=== PATIENT | female | born 1990 | race Caucasian/White ===

== ENCOUNTER 2024-08-09 09:02 | Outpatient (CLI) | payer OTHER, SELFPAY ==
--- NOTE | 2024-08-09 09:15 | CRLHL7_ITS ---
For Patients: As a result of the Century Cures Act, medical imaging exams and procedure reports are released immediately into your electronic medical record. You may view this report before your referring provider. If you have questions, please contact your health care provider. INDICATION: First trimester scan, establish dates. COMPARISON: None. TECHNIQUE: Real-time dempsey-scale imaging of the pelvis was performed. FINDINGS: Sonographic imaging demonstrates a single living intrauterine gestation. The embryo demonstrates a regular cardiac rate measuring 176 beats per minute. The embryo`s crown-rump length measurement of 2.3 cm corresponds to a gestational age of 9 weeks 0 days with a sonographic due date of 03/14/2025. There is a normal-appearing yolk sac. There are no gross abnormalities noted within the embryo at this early state of development. The gestational sac has a normal appearance. There is a 13 x 13 x 9 millimeters perigestational hemorrhage. The amount of fluid within the sac appears appropriate for gestational age. The cervix is closed. The myometrium appears normal. Simple right ovarian cyst is present measuring 4.6 x 3.5 x 2.8 cm. Mostly solid left ovarian lesion is present without internal vascularity measuring 4.4 x 3.9 x 3.6 cm there are no suspicious fluid collections noted in the cul-de-sac. IMPRESSION: Single living intrauterine measuring 9 weeks 0 days and sonographic due date 03/14/2025. Subchorionic hemorrhage measures 13 x 13 x 9 millimeters. Simple circumscribed anechoic right ovarian cyst measures 4.6 cm. Mostly solid nonvascular left ovarian lesion measuring 4.4 cm. Dictated by Juan Francisco Briseno MD @ 08/09/2024 12:13:49 PM (Electronically Signed)
== END 2024-08-09 09:03 | disposition home or self-care (01) ==
LOC: US 09:02
PROVIDERS: Visit Provider Physician Assistant
DX: Z34.91 Encounter for supervision of normal pregnancy, unspecified, first trimester (principal); O20.9 Hemorrhage in early pregnancy, unspecified; O34.81 Maternal care for other abnormalities of pelvic organs, first trimester; N83.201 Unspecified ovarian cyst, right side; N83.202 Unspecified ovarian cyst, left side; Z3A.09 9 weeks gestation of pregnancy
CPT/HCPCS: 76817; 93976

== ENCOUNTER 2024-08-23 10:16 | Outpatient (CLI) | payer OTHER, SELFPAY | END 2024-08-23 10:17 | disposition home or self-care (01) | LOC: NFLDREF 08-30 15:49 | PROVIDERS: Visit Provider Advanced Practice Midwife | DX: Z34.81 Encounter for supervision of other normal pregnancy, first trimester (principal); Z81.0 Family history of intellectual disabilities; Z67.40 Type O blood, Rh positive | CPT/HCPCS: 83020; 83021; 85660; 86592; 86703; 86704; 86706; 86762; 86787; 86803; 86850; 86900; 86901; 87086; 87340 ==

== ENCOUNTER 2024-10-27 09:34 | Outpatient (CLI) | payer OTHER, SELFPAY | END 2024-10-27 09:35 | disposition home or self-care (01) | LOC: US 09:35 | PROVIDERS: Visit Provider Advanced Practice Midwife | DX: O09.522 Supervision of elderly multigravida, second trimester (principal); Z3A.20 20 weeks gestation of pregnancy | CPT/HCPCS: 76811 ==

== ENCOUNTER 2024-12-01 10:39 | Outpatient (CLI) | payer OTHER, SELFPAY | END 2024-12-01 10:40 | disposition home or self-care (01) | LOC: US 10:39 | PROVIDERS: Visit Provider Advanced Practice Midwife | DX: O09.522 Supervision of elderly multigravida, second trimester (principal); Z3A.25 25 weeks gestation of pregnancy | CPT/HCPCS: 76816 ==

== ENCOUNTER 2024-12-22 09:11 | Outpatient (CLI) | payer OTHER, SELFPAY | END 2024-12-22 09:12 | disposition home or self-care (01) | LOC: NFLDREF 12-29 00:21 | PROVIDERS: Visit Provider Midwife | DX: Z34.83 Encounter for supervision of other normal pregnancy, third trimester (principal) | CPT/HCPCS: 86592 ==

== ENCOUNTER 2025-02-16 09:59 | Outpatient (CLI) | payer OTHER, SELFPAY | END 2025-02-16 10:00 | disposition home or self-care (01) | LOC: NFLDREF 02-19 16:41 | PROVIDERS: Visit Provider Midwife | DX: Z34.93 Encounter for supervision of normal pregnancy, unspecified, third trimester (principal); Z3A.36 36 weeks gestation of pregnancy | CPT/HCPCS: 87081; 87653 ==

== ENCOUNTER 2025-03-07 07:36 | Inpatient (IN) | payer OTHER, SELFPAY ==
[2025-03-07] VITALS (53 sets, daily range): BP systolic 92–127; BP diastolic 52–88; PULSE 67–102; RESP 14–18; TEMP 36.3–36.9; O2SAT 97–100; BMI 29.5
[2025-03-07 08:40] LABS: Hematocrit* 37.1 % (33.0-51.0); Hemoglobin* 12.7 gm/dL (12.0-16.0); Immature Granulocytes Abs Auto 0.05 K/uL (0.00-0.30); Immature Granulocytes Pct Auto 0.5 %; Mean Corpuscular HGB Conc 34 gm/dL (32-36); Mean Corpuscular Hemoglobin 31 pg (26-34); Mean Corpuscular Volume 92 fL (80-100); RDW Coefficient of Variation % 12.8 % (11.5-15.5); Red Blood Count* 4.04 m/uL (4.00-5.20); White Blood Count* 10.21 K/uL (4.50-11.00)
[2025-03-07 08:41] LABS: Lymphocytes Absolute Auto 1.40 K/uL (0.90-2.90); Slide Review Reflex No
[2025-03-07] MEDS: OXYTOCIN 30 unit/500 ML in NS 30 UNIT/500 ML BAG IVPB (11:03)
[2025-03-07] MEDS: LACTATED RINGERS 1000 ML 1,000 ML 125 ML IV (11:03)
--- NOTE | 2025-03-07 12:32 | P.LDBA_ITS ---
Subjective History of Present Illness Date Seen: 03/07/25 Narrative: Patient is being admitted to Labor and Delivery for IOL at 39w0d for AMA. She is a 34 year old . Some cramping, but nothing regular. Denies LOF, VB anc reports +FM. Specific Issues/Plans : Jose R Elective IOL at 39 weeks on 03/07/2025; consent signed 01/19 w/ B.ЕКАТЕРИНА Simmons H&P done by Petra Montes CNM on 02/23/25 #AMA? Recommend Genetic Screening Test: ordered 08/09, low risk 20-week Level II detailed ultrasound with [facility] # Hx of genital herpes Recommended suppression with Valtrex starting at 36 weeks-prescription sent at 34 weeks # Hx of macrosomia 1st child: 10lb 5oz # Left ovarian cyst, known dermoid 4.4 x3.9 x3.6 cm, pt reports unchanged from previous, confirmed with records; She is aware of what to monitor for if symptomatic originally identified in 1st and offered surgical intervention but declines Follow-up in post- period recommended by [facility] Imaging:? 1st trimester:08/09/24 Single living intrauterine measuring 9 weeks 0 days and sonographic due date 03/14/2025. Subchorionic hemorrhage measures 13 x 13 x 9 millimeters. Simple circumscribed anechoic right ovarian cyst measures 4.6 cm. Mostly solid nonvascular left ovarian lesion measuring 4.4 cm.? Level II Anatomy Scan with [facility] (10/27/2024): Impression: 1. Nelson at 20w2d gestational age by 9 week US. 2. No anomalies commonly detected by ultrasound were identified in the detailed anatomic survey within the limits of ultrasound, however some views of the arches and bicaval imaging were suboptimal due to position, as described above. 3. Growth parameters and estimated weight were consistent with gestational age predicted by assigned ADINA. 4. The amniotic fluid volume appeared normal. 5. On transabdominal imaging the cervix appeared long and closed. Follow-up with [facility] (12/01/2024): Impression: 1. Nelson intrauterine at 25w 2d gestational age. 2. None of the anomalies commonly detected by ultrasound were evident in the anatomic survey described above. 3. Growth parameters and estimated weight were consistent with appropriate for gestational age pattern of growth. 4. The amniotic fluid volume appeared normal. 5. A hyperechoic left adnexal mass is again noted, measuring 50 x 36 x 44 cm, which is stable compared to the prior US. The appearance is consistent with known left dermoid cyst.? ? COVID:?? Flu:N/A Tdap:?Declines 01/05/25 RSV:N/A? 32wk Mental Health:? 34wk hgb:??? Pap: [(Only high-risk abnormal pap in problem list)]? ? OB - Problem Based A/P Additional Plan (1) Supervision of other normal : Status: Acute (2) History of herpes genitalis: Status: Acute (3) AMA (advanced maternal age) multigravida 35+: Status: Acute Plan ASSESSMENT:? 34 y.o. at 39w0d weeks gestation? complicated by:?AMA Labor type: induced? Category 1 FHR pattern.?? Labor complicated by: n/a? GBS neg? ? PLAN:? 1. Routine intrapartum cares as ordered. Continue with expectant management? 2. Monitoring per policy, intermittent as appropriate then continuous when either labor epidural and/or oxytocin. ? 3. Planning labor epidural and desires sooner rather than later. ?? 4. Patient encouraged to reposition and ambulate to promote physiologic labor and .? 5. Anticipate ? Delivery/Labor/Induction Plan Plan: induction Induction method: AROM OB Exam Physical Exam Vital signs: Temp Pulse Resp BP Pulse Ox 98.3 F 83 16 127/83 97 03/07/25 11:47 03/07/25 11:47 03/07/25 11:47 03/07/25 11:47 03/07/25 10:46 Narrative: Vitals Reviewed Constitutional:? Alert and oriented x3 HEENT:? Normocephalic, atraumatic Lungs:? Clear to auscultation bilaterally Heart:? Regular rate and rhythm, no murmur, rub or gallop Abdomen:? Soft, nontender, and gravid. Vertex by Boyd's, confirmed with cervical exam. Extremities:? No edema or erythema Cervix: 3 cm/80%/-2 station/vertex NST: 135 bpm/mod variability/+ accelerations/no decelerations/contractions: mild; irregular
[2025-03-07] MEDS: LACTATED RINGERS 1000 ML 1,000 ML IV (14:46)
[2025-03-07] MEDS: ROPIVACAINE 0.2% 100 ml 100 ML 12 MG EPIDURAL (15:00)
[2025-03-07] MEDS: LIDOCAINE 2% (PF) 5 ML VIAL EPIDURAL (15:01)
[2025-03-07] MEDS: ROPIVACAINE 0.2 % PF 10 ML INJ 20 MG EPIDURAL (15:01)
--- NOTE | 2025-03-07 15:03 | P.ANBPRC_ITS ---
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 [employer] Lives with: Andria Odell Patty Pets: 1 cat, 1 dog Abuse: Denies past/present Special Diet: Denies Ok with a blood transfusion: yes Culture or mu-ism beliefs: denies RISK FACTORS Exercise Times/wk: Walking, 3x per week Hx of Depression and/or Anxiety/other mood disorder: no hx Seat Belt Use: Routinely Smoking: Denies past/present Alcohol/day: Denies while ; none prior; Remote hx of alcohol abuse Caffeine: 2 Cups usually, Drug Use: Denies past/present Chicken Pox: Yes as a child MRSA: Denies What is your current living situation?: I presently have a place to live Problems where you live: no known problems In the past 12 months, utilities in danger of being shut off: no In past 12 months, lack of transportation kept you from medical appts, meetings, work, or getting things needed for daily living: no In the past 12 mos, have been you worried that your food would run out before yo u had money to buy more?: never true In the past 12 mos, the food you bought just didn't last and you didn't have money to buy more?: never true Smoking Status: Never smoker How often does anyone, including family, friends and others, physically hurt you : never How often does anyone, including family, friends and others, insult or talk down to you: never How often does anyone, including family, friends and others, threaten you with harm: never How often does anyone, including family, friends and others, scream or curse at you: never Meds Home Medications and Allergies Home Medications ?Medication ?Instructions ?Recorded ?Confirmed ?Type vitamins no.119-iron tab PO 08/09/24 03/02/25 History fumarate 29 mg-folic acid 1 mg tablet valacyclovir 500 mg tablet 500 mg PO BID 6 weeks #90 t abs 02/02/25 03/07/25 Rx Allergies Allergy/AdvReac Type Severity Reaction Status Date / Time No Known Drug Allergies Allergy Verified 03/02/25 10:24 Results Labs Labs: Laboratory Results - last 24 hr 03/07/25 08:34 WBC 10.21 RBC 4.04 Hgb 12.7 Hct 37.1 MCV 92 MCH 31 MCHC 34 RDW Coeff of Sarah 12.8 Plt Count 157 Neut % (Auto) 79.9 H Lymph % (Auto) 13.3 L Floyd % (Auto) 5.3 Eos % (Auto) 0.8 Baso % (Auto) 0.2 Neut # (Auto) 8.20 H Lymph # (Auto) 1.40 Floyd # (Auto) 0.50 Eos # (Auto) 0.08 Baso # (Auto) 0.02 Abs Immat Gran (auto) 0.05 Imm/Tot Granulo (auto) 0.5 Blood Type O Positive Antibody Screen NEGATIVE Vital Signs Vital Signs: Last Vital Signs Temp 98.4 F 03/07/25 13:40 Pulse 86 03/07/25 15:00 Resp 14 03/07/25 13:40 BP 108/63 03/07/25 15:00 Pulse Ox 100 03/07/25 15:01 Weight: 83.053 kg Height: 167.64 cm Anesthesia Procedures Epidural Insertion Patient Location: OB Start Time: : Stop Time: 15:03 Start Date: 03/07/25 Stop Date: 03/07/25 Reason for Block: procedure for pain Patient Position: sitting Performed By: Linus De Jesus Preanesthetic Checklist: IV checked, risks and benefits discussed, surgical consent, monitors and equipment checked, pre-op evaluation, timeout performed and anesthesia consent Prep: chlorhexidine gluconate Monitoring: blood pressure monitoring, continuous pulse oximetry and heart rate Approach: midline Vertebral Space: lumbar (1-5) Epidural Technique: QUIQUE air Needle Type: Tuohy needle Injection Technique: continuous catheter Needle gauge: 17 Needle Length (cm): 10 cm Needle Insertion Depth (cm): 7 Catheter Gauge: 19 Catheter Type: multi-orifice Catheter at skin depth (cm): 13 Test Dose Result: negative and lidocaine 1.5% with epinephrine 1 to 200,000
--- NOTE | 2025-03-07 15:32 | PM.OBPNL ---
Subjective Date Seen: 03/07/25 Narrative: Cynthia is here for IOL for AMA. she just became comfortable s/p labor epidural. desires SVE. is on IV oxytocin at 8 mu/min. continues to leak sm amt of clear fluid. Objective Vital Signs: Last Vital Signs Temp 98.2 F 03/07/25 15:06 Pulse 78 03/07/25 15:28 Resp 18 03/07/25 15:06 BP 106/64 03/07/25 15:28 Pulse Ox 99 03/07/25 15:23 Pelvic Exam Comments: Vitals Reviewed and stable Constitutional:? Alert and oriented x3 Extremities:? +1 pitting edema Cervix: 7.5 cm/80%/-1 station/vertex NST: 135 bpm/mod variability/ + accelerations/ a few early decelerations/contractions: 2-3.5 min apart. Plan Plan: ASSESSMENT:? 34 at 39.0 weeks gestation? complicated by:?AMA Labor type: Induced, Active labor? Category 2 FHR pattern d/t occas early decel. overall very reassuring FHR tracing. .?? Labor complicated by: none GBS negative labor epidural in place ? PLAN:? 1. Routine intrapartum cares as ordered. Continue with oxytocin management? 2. Monitoring per policy, continuous 3. Anticipate ?
[2025-03-07] MEDS: PHENYLEPHRINE 100 MCG/ML SYRINGE IVP (17:05)
--- NOTE | 2025-03-07 19:08 | W.PM.OBVAGDE ---
OB Procedure Vag Delivery Mother Details Mother Details: The patient is a 34 year-old, 3, Para 3 now, admitted on 03/07/25 at 39.0 weeks gestation. she had AROM completed followed by IV oxytocin protocol where she proceeded to complete after labor epidural. Additional Details Amniotic Membrane Status: AROM Amniotic Membrane Rupture Date: 03/07/25 Amniotic Membrane Rupture Time: 08:26 Amniotic Membrane Fluid Description: Clear Analgesia/Anesthesia Type: Epidural Waterbirth: No Pitcoin: Yes Intrapartal Events: Labor Induction Induction Method: per pitocin protocol and AROM Labor Onset: 14:10 Complete: 18:36 Pushin:42 Heart: heart tones during second stage were [] Delivery Details Delivery Date: 03/07/25 Delivery Time: 18:49 Route of delivery: Gender: Male Viability: Alive; Heart Rate Present Position at Delivery: OA Delivery Details: Patient was admitted for IOL-elective, but she is AMA at 34 y.o. and progressed with inudction methods of AROM and oxytocin. AROM noted at 0826 with clear fluid. Patient was complete at 1836 and pushing at 1842. of a viable male at 1849. Vertex delivered OA. Nuchal cord x1 reduced. Body delivered easily and without incident. passed to mothers abdomen with a vigorous cry. Cord was clamped and cut at > 5 minutes. APGARS were 8 at one minute and 9 at five minutes respectively. Mouth was bulb suctioned. Intact placenta with a 3 vessel cord delivered spontaneously at 1857. Fundus firm. no laceration identified. QBL 400 cc. Mother and baby stable; mother plans to breastfeed. weight pending. 1 Minute Interval Total Score: 8 5 Minute Interval Total Score: 9 Additional Details Shoulder Dystocia: No Placental Delivery Description: Spontaneous Procedure Done: Global Blood Loss: 400 Laceration: None Blood Loss Measurement Type: QBL Bakri Used: No Sponge/Need Count Correct: Yes Cord Vessel Description: 3 Vessels, Nuchal Cord, Loose and Reduced Event Summary Status: Mother and infant were stable after delivery. Disposition: floor
[2025-03-07] MEDS: IBUPROFEN 600 MG TABLET PO (20:35)
[2025-03-07] MEDS: ACETAMINOPHEN 500 MG TABLET 1000 MG PO (22:39)
[2025-03-08 02:24] VITALS: BP 118/76; PULSE 87; RESP 17; TEMP 36.4
[2025-03-08] MEDS: IBUPROFEN 600 MG TABLET PO ×3 (02:27→16:26)
[2025-03-08 06:24] VITALS: BP 118/66; PULSE 94; RESP 17; TEMP 36.7; O2SAT 98
[2025-03-08 06:40] LABS: Hemoglobin* 11.7 gm/dL (12.0-16.0)
--- NOTE | 2025-03-08 07:30 | P.DS_ITS ---
DS: Providers Provider Date Seen: 03/08/25 Date of admission: 03/07/25 07:36 Primary care physician: Not a Local Provider Admitting Clinician: Melva Raines CNM Attending Physician on discharge: Dave Montes CNM Date of Discharge: 03/08/25 DS: Diagnosis Discharge Diagnosis (1) care and examination of lactating mother: Status: Acute Exam Narrative: Exam Narrative: VSS, afebrile GENERAL APPEARANCE: ?normal affect, alert, no distress MOOD: ?appropriate HEENT: normocephalic, neck supple, full ROM CHEST: ?Symmetrical chest wall movement. ?Normal respiratory effort. ?Clear to auscultation HEART: ?regular rate and rhythm ABDOMEN: ?soft, non-tender. Uterine fundus is firm, 1below Umbilicus, Midline and is appropriate for the stage of recovery. ?Bowel sounds present. PERINEUM: ?mild edema of the perineum, intact. EXTREMITIES: ?normal and no edema Const: Vital Signs, click to edit/add: Vital Signs - 24 hr 03/07/25 07:49 03/07/25 09:32 03/07/25 09:32 Temperature 98.2 F Pulse Rate 93 98 Pulse Rate [Blood Pressure Cuff] Respiratory Rate 18 Blood Pressure 119/74 118/88 Blood Pressure [Ri ght Arm] Pulse Oximetry 97 Oxygen Delivery Me thod 03/07/25 10:46 03/07/25 10:46 03/07/25 11:47 Temperature 97.4 F L Pulse Rate 86 83 Pulse Rate [Blood Pressure Cuff] Respiratory Rate 18 Blood Pressure 122/77 127/83 Blood Pressure [Ri ght Arm] Pulse Oximetry 97 Oxygen Delivery Me thod 03/07/25 11:47 03/07/25 13:40 03/07/25 13:40 Temperature 98.3 F 98.4 F Pulse Rate 83 Pulse Rate [Blood Pressure Cuff] Respiratory Rate 16 14 Blood Pressure 121/72 Blood Pressure [Ri ght Arm] Pulse Oximetry Oxygen Delivery Me thod 03/07/25 14:46 03/07/25 14:51 03/07/25 14:56 Temperature Pulse Rate 86 Pulse Rate [Blood Pressure Cuff] Respiratory Rate Blood Pressure 120/63 Blood Pressure [Ri ght Arm] Pulse Oximetry 98 100 99 Oxygen Delivery Me thod 03/07/25 14:58 03/07/25 15:00 03/07/25 15:01 Temperature Pulse Rate 86 86 Pulse Rate [Blood Pressure Cuff] Respiratory Rate Blood Pressure 115/67 108/63 Blood Pressure [Ri ght Arm] Pulse Oximetry 100 Oxygen Delivery Me thod 03/07/25 15:02 03/07/25 15:04 03/07/25 15:06 Temperature Pulse Rate 81 80 88 Pulse Rate [Blood Pressure Cuff] Respiratory Rate Blood Pressure 110/62 109/61 108/62 Blood Pressure [Ri ght Arm] Pulse [facility]xim[facility] 15:06 03/07/25 15:08 03/07/25 15:10 Temperature 98.2 F Pulse Rate 91 93 Pulse Rate [Blood Pressure Cuff] Respiratory Rate 18 Blood Pressure 107/66 109/64 Blood Pressure [Ri ght Arm] Pulse Oximetry [facility] 03/07/25 15:11 03/07/25 15:12 03/07/25 15:14 Temperature Pulse Rate 85 100 Pulse Rate [Blood Pressure Cuff] Respiratory Rate Blood Pressure 104/58 L 109/59 L Blood Pressure [Ri ght Arm] Pulse Oximetry 97 [facility] 03/[facility]25 15:16 03/07/25 15:19 03/07/25 15:22 Temperature Pulse Rate 88 80 Pulse Rate [Blood Pressure Cuff] Respiratory Rate Blood Pressure 92/52 L 111/71 Blood Pressure [Ri ght Arm] Pulse Oximetry 97 [facility] 03/07/25 15:23 03/07/25 15:24 03/07/25 15:26 Temperature Pulse Rate 78 86 Pulse Rate [Blood Pressure Cuff] Respiratory Rate Blood Pressure 112/71 110/68 Blood Pressure [Ri ght Arm] Pulse Oximetry 99 [facility] 03/[facility]/25 15:28 03/07/25 15:34 03/07/25 15:50 Temperature Pulse Rate 78 79 72 Pulse Rate [Blood Pressure Cuff] Respiratory Rate Blood Pressure 106/64 111/76 111/72 Blood Pressure [Ri ght Arm] Pulse Oximetry Oxygen Delivery [facility] 03/07/25 16:04 03/07/25 16:21 03/07/25 16:36 Temperature Pulse Rate 96 82 82 Pulse Rate [Blood Pressure Cuff] Respiratory Rate Blood Pressure 116/80 109/70 118/76 Blood Pressure [Ri ght Arm] Pulse Oximetry Oxygen Delivery Me thod 03/07/25 16:50 03/07/25 17:03 03/07/25 17:04 Temperature Pulse Rate 67 75 Pulse Rate [Blood Pressure Cuff] Respiratory Rate Blood Pressure 103/64 96/58 L Blood Pressure [Ri ght Arm] Pulse Oximetry 100 Oxygen Delivery Me thod 03/07/25 17:14 03/07/25 17:18 03/07/25 17:23 Temperature 97.4 F L Pulse Rate 74 79 Pulse Rate [Blood Pressure Cuff] Respiratory Rate 18 Blood Pressure 120/80 117/70 Blood Pressure [Ri ght Arm] Pulse Oximetry Oxygen Delivery Mt thod 03/07/25 17:38 03/07/25 17:53 03/07/25 18:08 Temperature Pulse Rate 72 89 73 Pulse Rate [Blood Pressure Cuff] Respiratory Rate Blood Pressure 107/64 105/69 106/65 Blood Pressure [Ri ght Arm] Pulse Oximetry Oxygen Delivery Mt thod 03/07/25 18:16 03/07/25 18:22 03/07/25 18:37 Temperature 97.4 F L Pulse Rate 77 77 Pulse Rate [Blood Pressure Cuff] Respiratory Rate 18 Blood Pressure 113/71 114/71 Blood Pressure [Ri ght Arm] Pulse Oximetry Oxygen Delivery Mt thod 03/07/25 18:52 03/07/25 18:52 03/07/25 19:13 Temperature 98.3 F Pulse Rate 82 90 Pulse Rate [Blood Pressure Cuff] Respiratory Rate 14 Blood Pressure 126/77 120/74 Blood Pressure [Ri ght Arm] Pulse Oximetry Oxygen Delivery Mt thod 03/07/25 19:28 03/07/25 19:50 03/07/25 19:50 Temperature Pulse Rate 90 88 Pulse Rate [Blood Pressure Cuff] Respiratory Rate Blood Pressure 119/73 122/76 Blood Pressure [Ri ght Arm] Pulse Oximetry Oxygen Delivery Mt thod 03/07/25 19:58 03/07/25 19:58 03/07/25 20:13 Temperature Pulse Rate 93 Pulse Rate [Blood Pressure Cuff] Respiratory Rate Blood Pressure 127/77 116/79 Blood Pressure [Ri ght Arm] Pulse Oximetry Oxygen Delivery Mt thod 03/07/25 20:13 03/07/25 20:28 03/07/25 20:28 Temperature Pulse Rate 86 96 Pulse Rate [Blood Pressure Cuff] Respiratory Rate Blood Pressure 121/77 Blood Pressure [Ri ght Arm] Pulse Oximetry Oxygen Delivery Me thod 03/07/25 20:43 03/07/25 20:43 03/07/25 20:58 Temperature Pulse Rate 95 Pulse Rate [Blood Pressure Cuff] Respiratory Rate Blood Pressure 113/68 123/68 Blood Pressure [Ri ght Arm] Pulse Oximetry Oxygen Delivery Me thod 03/07/25 20:58 03/07/25 22:34 03/08/25 02:24 Temperature 98.5 F 97.6 F Pulse Rate 92 Pulse Rate [Blood Pressure Cuff] 102 H 87 Respiratory Rate 17 17 Blood Pressure Blood Pressure [Ri ght Arm] 115/62 118/76 Pulse Oximetry Oxygen Delivery Me thod Room Air Room Air 03/08/25 06:24 Temperature 98.0 F Pulse Rate Pulse Rate [Blood Pressure Cuff] 94 Respiratory Rate 17 Blood Pressure Blood Pressure [Ri ght Arm] 118/66 Pulse Oximetry 98 Oxygen Delivery Me thod Room Air Documenting provider has reviewed patient's vital signs: yes OB - DS: Summary Hospital Course Hospital Course: Merna is a 34 y.o. who was admitted to [facility] for induction of labor. ?She had an uncomplicated NVD.?The patient feels well. ?The pain is well controlled with current medications. ?She has no new complaints. ?She is breast feeding and reports things are going well. Baby was sleepy for the last few hours but was starting to root while I was in the room.? the patient has done well.? Vitals have been stable.? She has remained afebrile.? Has a good appetite, is tolerating a general diet. ?She is voiding without difficulty.? She is passing gas and has not had a bowel movement.? She is ambulating and denies any dizziness.? Has Small amount of rubra lochia. ?She is planning partner vasectomy for prevention. Peripartum Data Infant delivery method: Vaginal Laceration description: None [place] Gender: Male Infant Discharge Plan: Home Status at Discharge Functional status at discharge: independent ambulation Overall status at discharge: patient is progressing back to baseline Time Spent with Patient Time attestation: Total time spent providing and/or coordinating discharge services: Time spent: Less than 30 minutes Discharge Plan Discharge Disposition: Home, Self-Care Date of Admission: 03/07/25 07:36 Attending Provider on Discharge: Dave Montes Primary Care Provider: Provider,Not a Local Condition: Stable Anticipated Discharge Date/Time: 03/08/25 20:00 Discharge Medications: New acetaminophen 500 mg Tablet 1,000 mg PO Q6H PRN (Reason: Pain) Qty: 0 0RF docusate sodium 100 mg Capsule 100 mg PO DAILY Qty: 60 0RF ibuprofen 600 mg Tablet 600 mg PO Q6H PRN (Reason: pain) Qty: 90 0RF Continued PNV 119-iron fum-folic acid 29 mg iron- 1 mg tablet PO Discontinued valacyclovir 500 mg tablet 500 mg PO BID 42 Days Qty: 90 0RF Discharge Orders: Discharge Order (Routine); Ordered 03/08/25 Ordered By: Dave Montes Patient Education: OB Over the Counter Medication Information, OB Vaginal/Breast Feeding Additional Instructions: Discharge instructions were reviewed with the patient including signs and symptoms of infection and home going medications Nothing vaginally for 6 weeks: no tampons or intercourse Off Work or School for 6 weeks 2-week visit: discuss infant feeding concerns, review control options and screen for anxiety/depression. 6-week visit for an annual exam. consultation services are available to all mothers and babies for the first year after delivery.? To make an appointment, please call [phone]. Activity Level: Activity as Tolerated Discharge Diet: Regular Follow Up Appointments: [facility] [Provider Group] Forms: [employer] Info Instructions
[2025-03-08 09:00] VITALS: BP 111/74; PULSE 106; RESP 16; TEMP 36.5; O2SAT 96
[2025-03-08] MEDS: DOCUSATE SODIUM 100 MG CAPSULE PO (09:06)
[2025-03-08 12:40] VITALS: BP 118/79; PULSE 82; RESP 16; TEMP 36.8; O2SAT 96
[2025-03-08] MEDS: ACETAMINOPHEN 500 MG TABLET 1000 MG PO (12:49)
--- NOTE | 2025-03-08 13:21 | PM.ANPOST ---
Post Anesthesia Note Post Anesthesia Note Patient seen: Inpatient Respiratory Status: adequate Cardiovascular Status: adequate Mental Status: baseline Pain: adequate Temp: baseline Anesthetic awareness: N/A Complications: none Follow care: none
[2025-03-08 16:13] VITALS: BP 115/73; PULSE 90; RESP 16; TEMP 36.9; O2SAT 97
== END 2025-03-08 19:30 | disposition home or self-care (01) | DRG 807 ==
PROVIDERS: Admitting Provider Midwife, Lay; Visit Provider Midwife, Lay
DX: O98.32 Other infections with a predominantly sexual mode of transmission complicating childbirth (principal); Z37.0 Single live birth; A60.00 Herpesviral infection of urogenital system, unspecified; Z3A.39 39 weeks gestation of pregnancy
CPT/HCPCS: 01967; 36415; 85018; 85025; 86592; 86850; 86900; 86901; 94761; A9270; J2795; J7120